=== PATIENT | female | born 1975 ===

== ENCOUNTER 2023-10-05 05:48 | Day surgery (SDC) | payer OTHER ==
[2023-10-05] MEDS ORDERED: MIDAZOLAM HCL/PF 5 MG/ML VIAL IV ONE (09:00)
[2023-10-05] MEDS ORDERED: MEPERIDINE HCL/PF 50 MG/ML VIAL IV ONE (09:00)
[2023-10-05] MEDS ORDERED: DIPHENHYDRAMINE HCL 50 MG/ML VIAL 1ML IV ONE (09:00)
== END 2023-10-05 11:15 | disposition home or self-care (01) ==
LOC: AMB-ENDOS 05:48
PROVIDERS: ATTEND Surgery
DX: K29.70 Gastritis, unspecified, without bleeding (principal); K44.9 Diaphragmatic hernia without obstruction or gangrene; E66.09 Other obesity due to excess calories; R10.13 Epigastric pain